=== PATIENT | female | born 1955 | race Asian ===

== ENCOUNTER 2019-04-14 08:35 | Day surgery (SDC) | payer OTHER ==
[~2019-04-14] VITALS: Ht 30.5 cm; Wt 0.5 kg
== END 2019-04-14 10:07 | disposition home or self-care (01) ==
LOC: OR 08:35
PROC: 3E0R33Z Introduction of Anti-inflammatory into Spinal Canal, Percutaneous Approach (ICD-10-PCS; principal; 2019-04-14)
PROC: B01BYZZ Fluoroscopy of Spinal Cord using Other Contrast (ICD-10-PCS; 2019-04-14)
DX: M51.16 Intervertebral disc disorders with radiculopathy, lumbar region (principal)
CPT/HCPCS: J1020

== ENCOUNTER 2019-05-11 09:26 | Day surgery (SDC) | payer OTHER | END 2019-05-11 12:10 | disposition home or self-care (01) | LOC: OR 09:26 | PROC: 3E0R33Z Introduction of Anti-inflammatory into Spinal Canal, Percutaneous Approach (ICD-10-PCS; principal; 2019-05-11) | PROC: B01BYZZ Fluoroscopy of Spinal Cord using Other Contrast (ICD-10-PCS; 2019-05-11) | DX: M51.16 Intervertebral disc disorders with radiculopathy, lumbar region (principal) | CPT/HCPCS: J1020 ==

== ENCOUNTER 2019-05-25 11:27 | Outpatient (CLI) | payer OTHER | END 2019-05-25 21:15 | disposition home or self-care (01) | LOC: RAD 11:27 | DX: M51.26 Other intervertebral disc displacement, lumbar region (principal) ==

== ENCOUNTER → 2019-07-06 | Day surgery (SDC) | payer OTHER | LOC: OR 06:00 | PROC: 3E0R33Z Introduction of Anti-inflammatory into Spinal Canal, Percutaneous Approach (ICD-10-PCS; principal; 2019-07-06) | PROC: B01BYZZ Fluoroscopy of Spinal Cord using Other Contrast (ICD-10-PCS; 2019-07-06) | DX: M51.16 Intervertebral disc disorders with radiculopathy, lumbar region (principal) | CPT/HCPCS: J1020 ==

== ENCOUNTER 2019-09-28 09:08 | Day surgery (SDC) | payer OTHER | END 2019-09-28 11:20 | disposition home or self-care (01) | LOC: OR 09:08 | PROC: 3E0T3BZ Introduction of Anesthetic Agent into Peripheral Nerves and Plexi, Percutaneous Approach (ICD-10-PCS; principal; 2019-09-28) | PROC: 3E0T33Z Introduction of Anti-inflammatory into Peripheral Nerves and Plexi, Percutaneous Approach (ICD-10-PCS; 2019-09-28) | DX: M47.816 Spondylosis without myelopathy or radiculopathy, lumbar region (principal) | CPT/HCPCS: J1100; J2001 ==

== ENCOUNTER 2019-10-19 09:01 | Day surgery (SDC) | payer OTHER ==
[~2019-10-19] VITALS: Ht 170.2 cm; Wt 77.1 kg
== END 2019-10-19 12:00 | disposition home or self-care (01) ==
LOC: OR 09:01
PROC: 3E0T3BZ Introduction of Anesthetic Agent into Peripheral Nerves and Plexi, Percutaneous Approach (ICD-10-PCS; principal; 2019-10-19)
PROC: 3E0T33Z Introduction of Anti-inflammatory into Peripheral Nerves and Plexi, Percutaneous Approach (ICD-10-PCS; 2019-10-19)
DX: M47.816 Spondylosis without myelopathy or radiculopathy, lumbar region (principal)
CPT/HCPCS: J1100; J2001

== ENCOUNTER 2019-11-30 09:46 | Day surgery (SDC) | payer OTHER ==
[~2019-11-30] VITALS: Ht 170.2 cm; Wt 79.4 kg
== END 2019-11-30 13:25 | disposition home or self-care (01) ==
LOC: OR 09:46
PROC: 3E0T3TZ Introduction of Destructive Agent into Peripheral Nerves and Plexi, Percutaneous Approach (ICD-10-PCS; principal; 2019-11-30)
PROC: BR16YZZ Fluoroscopy of Lumbar Facet Joint(s) using Other Contrast (ICD-10-PCS; 2019-11-30)
DX: M47.816 Spondylosis without myelopathy or radiculopathy, lumbar region (principal)
CPT/HCPCS: J2001

== ENCOUNTER 2020-10-20 12:50 | Outpatient (CLI) | payer OTHER | END 2020-10-20 19:04 | disposition home or self-care (01) | LOC: MRI 12:50 | PROVIDERS: ATTEND Pain Medicine Interventional Pain Medicine | DX: M54.12 Radiculopathy, cervical region (principal) ==